=== PATIENT | male | born 1985 | race African-American/Black ===

== ENCOUNTER 2021-04-09 19:09 | Emergency (ER) | payer SELFPAY ==
[2021-04-09 19:50] LABS: URINE BILIRUBIN - DIPSTICK NEGATIVE (NEGATIVE); URINE BLOOD DIPSTICK SMALL (NEGATIVE); URINE COLOR YELLOW; URINE GLUCOSE - DIPSTICK NEGATIVE (NEGATIVE); URINE KETONE TRACE mg/dL (NEGATIVE); URINE LEUK ESTERASE NEGATIVE (NEGATIVE); URINE PROTEIN - DIPSTICK 30 mg/dL (NEG-TRACE); URINE SPECIFIC GRAVITY >=1.030; URINE UROBILINOGEN - DIPSTICK 0.2 E.U./dL (0.2)
[2021-04-09 19:50] LABS: HEMATOCRIT 38.4 % (39.0-50.0); HEMOGLOBIN 12.5 g/dl (14.0-18.0); IMMATURE GRANULOCYTES 0.8 % (0.0-5.0); MEAN CELL VOLUME 82.4 fL CALC (80.0-100.0); MEAN CORPUSCULAR HGB 26.8 pG CALC (26.0-32.0); MEAN CORPUSCULAR HGB CONC 32.6 g/dL CAL (32.0-36.0); NEUT# 3.24 thou/uL (1.82-7.42); RED BLOOD COUNT 4.66 mill/uL (4.70-6.10); RED CELL DISTRI WIDTH 13.3 % (11.5-15.5)
[2021-04-09 19:52] LABS: URINE NITRITE - DIPSTICK NEGATIVE (Negative)
[2021-04-09 19:58] LABS: URINE WBC 0-2 WBC/hpf (0-5)
[2021-04-09 19:59] LABS: URINE SPERM FEW hpf (NONE-RARE)
[2021-04-09 20:10] LABS: ALKALINE PHOSPHATASE 64 u/l (38-126); ANION GAP 14 (6-22 (CALC)); BILIRUBIN, TOTAL 0.5 mg/dL (0.0-1.4); BUN 11 mg/dL (9-20); BUN/CREATININE RATIO 12 (12-20 (CALC)); CARBON DIOXIDE 25 mmol/l (22-30); CHLORIDE 103 mmol/l (95-108); CREATININE 0.9 mg/dL (0.7-1.3); ETHYL ALCOHOL 0 mg/dl (0-30); GFR > 60 ML/MIN (>=60 (CALC)); GFR FOR AFR.AMER. > 60 ML/MIN (>=60 (CALC)); POTASSIUM 3.9 mmol/l (3.5-5.1); SGOT/AST 62 u/l (17-59); SODIUM 138 mmol/l (137-146); TOTAL PROTEIN 8.8 g/dL (6.3-8.2)
[2021-04-09 20:22] LABS: MYOGLOBIN 319 ng/mL (0 - 121)
[2021-04-09 22:30] VITALS: BP 116/64
== END 2021-04-09 22:32 | disposition short-term general hospital (02) | DRG 101 ==
LOC: ED 19:09 → EDBD 19:09 → ED 19:27
PROVIDERS: Family Medicine
DX: G40.909 Epilepsy, unspecified, not intractable, without status epilepticus (principal); R90.89 Other abnormal findings on diagnostic imaging of central nervous system; S00.81XA Abrasion of other part of head, initial encounter; X58.XXXA Exposure to other specified factors, initial encounter
CPT/HCPCS: J1953